=== PATIENT | male | born 1960 | race Caucasian/White ===

== ENCOUNTER 2020-01-31 16:47 | Outpatient (REF) | payer OTHER, SELFPAY ==
[2020-01-31 20:45] LABS: ALT 35 U/L (16-63); AST 22 U/L (15-37); Alkaline Phosphatase 93 U/L (46-116); Anion Gap 8.6 mmol/L (3-11); BUN 24 mg/dL (7-18); Bilirubin, Total 0.6 mg/dL (0.2-1.0); CO2 28.4 mmol/L (21.0-32.0); CREATININE 1.34 mg/dL (0.70-1.30); Calcium 9.1 mg/dL (8.5-10.1); Chloride 103 mmol/L (98-107); Estimated GFR 54.37 (mL/min/1.73m2); Glucose 93 mg/dL (74-106); Potassium 4.1 mmol/L (3.5-5.1); Sodium 140 mmol/L (136-145); TSH (W/Ref FT4) 3.03 uIU/mL (0.36-3.74)
== END 2020-01-31 17:07 ==
LOC: NCHCN 16:47
PROVIDERS: PCP Family Medicine; Visit Provider Nurse Practitioner Community Health
DX: R60.0 Localized edema (principal)
CPT/HCPCS: 80053; 84443

== ENCOUNTER 2020-02-08 21:23 | Outpatient (REF) | payer OTHER, SELFPAY ==
[2020-02-08 22:23] LABS: Anion Gap 11.7 mmol/L (3-11); BUN 23 mg/dL (7-18); CO2 25.3 mmol/L (21.0-32.0); CREATININE 1.43 mg/dL (0.70-1.30); Calcium 8.7 mg/dL (8.5-10.1); Chloride 101 mmol/L (98-107); Estimated GFR 50.44 (mL/min/1.73m2); Glucose 113 mg/dL (74-106); Potassium 3.6 mmol/L (3.5-5.1); Sodium 138 mmol/L (136-145)
== END 2020-02-08 21:43 ==
LOC: NCHCN 21:23
PROVIDERS: PCP Family Medicine; Visit Provider Family Medicine
DX: R60.0 Localized edema (principal)
CPT/HCPCS: 80048

== ENCOUNTER 2020-05-16 10:27 | Outpatient (REF) | payer SELFPAY ==
[2020-05-16 21:51] LABS: COMMENT (LAB VIEW ONLY) 106.13 mg/dL
== END 2020-05-16 10:47 ==
LOC: NCHCN 10:27
PROVIDERS: PCP Family Medicine; Visit Provider Family Medicine
DX: E11.9 Type 2 diabetes mellitus without complications (principal)
CPT/HCPCS: 82043; 82570

== ENCOUNTER 2021-10-19 18:28 | Outpatient (REF) | payer OTHER, SELFPAY ==
[2021-10-19 14:43] LABS: Anion Gap 8.3 mmol/L (3-11); BUN 18 mg/dL (7-18); CO2 27.7 mmol/L (21.0-32.0); CREATININE 1.1 mg/dL (0.70-1.30); Calcium 8.4 mg/dL (8.5-10.1); Calculated LDL 87 mg/dL (<100); Chloride 103 mmol/L (98-107); Cholesterol 178 mg/dL (<200); Glucose 100 mg/dL (74-106); HDL Cholesterol 52 mg/dL (40-60); Potassium 3.9 mmol/L (3.5-5.1); Sodium 139 mmol/L (136-145); Triglyceride 198 mg/dL (<150)
[2021-10-19 15:41] LABS: COMMENT (LAB VIEW ONLY) 69.76 mg/dL; Microalb ug/mg Crea 17.5 ug/mg Cr
== END 2021-10-19 18:29 | disposition home or self-care (01) ==
LOC: NCHCN 18:28
PROVIDERS: PCP Family Medicine; Visit Provider Family Medicine
DX: I10 Essential (primary) hypertension (principal); E66.01 Morbid (severe) obesity due to excess calories; K21.9 Gastro-esophageal reflux disease without esophagitis; G47.33 Obstructive sleep apnea (adult) (pediatric); E11.9 Type 2 diabetes mellitus without complications
CPT/HCPCS: 80048; 80061; 82043; 82570

== ENCOUNTER 2022-09-04 18:10 | Outpatient (REF) | payer OTHER, SELFPAY ==
[2022-09-04 21:02] LABS: ALT 36 U/L (16-63); AST 31 U/L (15-37); Albumin 4.5 g/dL (3.4-5.0); Alkaline Phosphatase 60 U/L (46-116); Anion Gap 8.2 mmol/L (3-11); BUN 28 mg/dL (7-18); Bilirubin, Total 0.5 mg/dL (0.2-1.0); CO2 25.8 mmol/L (21.0-32.0); CREATININE 1.2 mg/dL (0.70-1.30); Calcium 9.1 mg/dL (8.5-10.1); Chloride 102 mmol/L (98-107); Estimated GFR 68.38 (mL/min/1.73m2); Glucose 87 mg/dL (74-106); Sodium 136 mmol/L (136-145); Total Protein 8.2 g/dL (6.4-8.2)
[2022-09-05 19:20] LABS: PSA, Screening 1.6 ng/mL (<=4.5)
== END 2022-09-04 18:11 | disposition home or self-care (01) ==
LOC: NCHCN 18:10
PROVIDERS: PCP Family Medicine; Visit Provider Family Medicine
DX: I10 Essential (primary) hypertension (principal); E66.01 Morbid (severe) obesity due to excess calories; Z12.5 Encounter for screening for malignant neoplasm of prostate
CPT/HCPCS: 80053; 84153

== ENCOUNTER 2022-11-26 16:23 | Outpatient (REF) | payer OTHER, SELFPAY ==
[2022-11-26 22:04] LABS: COMMENT (LAB VIEW ONLY) 29.74 mg/dL; Microalb ug/mg Crea 7.4 ug/mg Cr
== END 2022-11-26 16:24 | disposition home or self-care (01) ==
LOC: NCHCN 16:23
PROVIDERS: PCP Family Medicine; Visit Provider Family Medicine
DX: I10 Essential (primary) hypertension (principal); E11.9 Type 2 diabetes mellitus without complications; E66.01 Morbid (severe) obesity due to excess calories
CPT/HCPCS: 82043; 82570

== ENCOUNTER 2023-11-05 19:45 | Outpatient (REF) | payer OTHER, SELFPAY ==
[2023-11-05 21:26] LABS: ESR 13 mm/hr (0-20)
[2023-11-05 21:36] LABS: Anion Gap 13.2 mmol/L (3-11); BUN 36 mg/dL (7-18); CO2 22.8 mmol/L (21.0-32.0); CREATININE 1.3 mg/dL (0.70-1.30); Chloride 104 mmol/L (98-107); Estimated GFR 61.35 (mL/min/1.73m2); Glucose 89 mg/dL (74-106); Potassium 4.1 mmol/L (3.5-5.1); Sodium 140 mmol/L (136-145)
[2023-11-06 17:51] LABS: CRP, High Sensitivity 4.77 mg/L (See Note)
== END 2023-11-05 19:46 | disposition home or self-care (01) ==
LOC: NCHCN 19:45
PROVIDERS: PCP Family Medicine; Visit Provider Nurse Practitioner Family
DX: I10 Essential (primary) hypertension (principal); M10.9 Gout, unspecified; M25.562 Pain in left knee
CPT/HCPCS: 80048; 85652; 86141; 84550

== ENCOUNTER 2023-12-05 09:24 | Outpatient (REF) | payer OTHER, SELFPAY ==
[2023-12-05 17:45] LABS: COMMENT (LAB VIEW ONLY) 57.21 mg/dL; Microalb ug/mg Crea 13.5 ug/mg Cr
== END 2023-12-05 09:25 | disposition home or self-care (01) ==
LOC: NCHCN 09:24
PROVIDERS: PCP Family Medicine; Visit Provider Family Medicine
DX: E11.9 Type 2 diabetes mellitus without complications (principal)
CPT/HCPCS: 82043; 82570

== ENCOUNTER 2025-01-31 19:00 | Outpatient (REF) | payer MEDICARE, SELFPAY ==
[2025-01-31 21:56] LABS: Anion Gap 8.5 mmol/L (3-11); BUN 24 mg/dL (7-18); CO2 25.5 mmol/L (21.0-32.0); CREATININE 1.3 mg/dL (0.70-1.30); Calculated LDL 88 mg/dL (<100); Chloride 104 mmol/L (98-107); Cholesterol 179 mg/dL (<200); Estimated GFR 60.96 (mL/min/1.73m2); Glucose 84 mg/dL (74-106); HDL Cholesterol 50 mg/dL (>or=40); Potassium 3.7 mmol/L (3.5-5.1); Sodium 138 mmol/L (136-145); TSH 3.23 uIU/mL (0.36-3.74); Triglyceride 206 mg/dL (<150)
[2025-02-01 19:12] LABS: PSA, Screening 1.9 ng/mL (<=4.5)
== END 2025-01-31 19:01 | disposition home or self-care (01) ==
LOC: NCHCN 19:00
PROVIDERS: PCP Family Medicine; Visit Provider Family Medicine
DX: I10 Essential (primary) hypertension (principal); Z12.5 Encounter for screening for malignant neoplasm of prostate; E78.5 Hyperlipidemia, unspecified; E03.9 Hypothyroidism, unspecified
CPT/HCPCS: 80048; 80061; 84153; 84443

== ENCOUNTER 2025-03-01 15:37 | Outpatient (REF) | payer MEDICARE, SELFPAY ==
[2025-03-01 21:09] LABS: COMMENT (LAB VIEW ONLY) 107.56 mg/dL; Microalb ug/mg Crea 11.2 ug/mg Cr
== END 2025-03-01 15:38 | disposition home or self-care (01) ==
LOC: NCHCN 15:37
PROVIDERS: PCP Family Medicine; Visit Provider Family Medicine
DX: E11.9 Type 2 diabetes mellitus without complications (principal)
CPT/HCPCS: 82043; 82570